=== PATIENT | male | born 2000 | race Caucasian/White ===

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

== ENCOUNTER 2021-04-24 07:04 | Day surgery (SDC) | payer BC, OTHER ==
[2021-04-19 18:07] VITALS: BMI 23.7
[~2021-04-24 07:04] MED LIST: LACTATED RINGERS 1,000 ML IV SCH
[2021-04-24 07:23] VITALS: RESP 16; TEMP 97.7
[2021-04-24] MEDS ORDERED: MIDAZOLAM 2 MG/2 ML VIAL ONE (07:39)
[2021-04-24] MEDS ORDERED: PROPOFOL 10 MG/ML 20 ML VIAL IV ONE (07:39)
[2021-04-24] MEDS ORDERED: fentaNYL (PF) 50 MCG/ML 2 ML AMP ONE (07:39)
[2021-04-24] MEDS ORDERED: LIDOCAINE 1% INJ 10MG/ML (20 ML MDV) ONE (07:39)
--- NOTE | 2021-04-24 08:12 | P.PCN ---
Date of Procedure: 04/24/21 Description of Procedure: Brief history: Patient is a pleasant 21-year-old female presenting for outpatient EGD and colonoscopy for evaluation of nausea and vomiting and diarrhea. He reported frequent episodes of postprandial nausea with severe vomiting. Symptoms decreasing over the past few weeks. He continues to have nausea. He also reports diarrhea. He also has some bright red blood per rectum in association with his diarrhea. Computed tomography scan of the abdomen showed possible enteritis. Procedure performed: Esophagogastroduodenoscopy with biopsy Colonoscopy with biopsy Estimated blood loss: Minimal. Preoperative diagnosis: Nausea with vomiting, diarrhea, no prior endoscopic evaluation. Anesthesia: [facility] Procedure: After informed consent was obtained from the patient was brought into the endoscopy unit and IV sedation was administered by anesthesia under continuous monitoring. Initially upper endoscopy was done. The Olympus GF 190 video endoscope was inserted into the mouth and esophagus intubated without any difficulty and was gradually advanced into the stomach and duodenum and carefully examined. The bulb and second part of the duodenum appeared normal, with biopsies taken. The scope was then withdrawn into the stomach adequately insufflated with air and upon careful examination the antrum and body, cardia and fundus appeared normal, except for some mild punctate erythema in the antrum and body suggestive of mild gastritis with biopsies taken of the antrum and body. The scope was then withdrawn into the esophagus. The GE junction was located at 43 cm to the incisors. It appeared regular with no erythema erosions or ulcerations, with lower esophageal biopsies taken. Rest of the esophagus appeared normal. Patient tolerated the procedure well. At this time the patient continued to remain sedation. Initial digital rectal examination was normal. Olympus CF 190 video colonoscope was then inserted into the rectum and gradually advanced to the cecum without any difficulty. Careful examination was performed as the scope was gradually being withdrawn. The prep was excellent. The cecum, ascending colon, transverse colon, descending colon, sigmoid colon and rectum appeared normal with random biopsies of the right and left colon. Terminal ileum was intubated and appeared normal with biopsies taken. Retroflexion was performed in the rectum and no lesions were noted, and low-grade internal hemorrhoids seen. Patient tolerated the procedure well. Impression: 1. Mild gastritis. Biopsies of the duodenum, antrum body and lower esophagus. 2. Normal-appearing colon from rectum to cecum and normal-appearing terminal ileum with random biopsies taken of the right colon, left colon and terminal ileum. Internal hemorrhoids. Recommendations: Findings of this examination were discussed with the patient as well as his family. Okay to resume diet. Okay to resume medications. Await pathology from biopsies. Follow up in the GI office as previously scheduled.
[2021-04-24 08:29] VITALS: BP 92/56; PULSE 63
== END 2021-04-24 09:11 | disposition home or self-care (01) ==
LOC: ORWHC2ENDO 07:04
PROVIDERS: ATTEND Internal Medicine
DX: K29.50 Unspecified chronic gastritis without bleeding (principal); K20.0 Eosinophilic esophagitis; K21.9 Gastro-esophageal reflux disease without esophagitis; K64.8 Other hemorrhoids; K62.5 Hemorrhage of anus and rectum; Z98.890 Other specified postprocedural states; J45.909 Unspecified asthma, uncomplicated
CPT/HCPCS: 88305; 45380; 43239; J2250; J2001; J3010; J2704